=== PATIENT | female | born 1990 | race Caucasian/White ===

== ENCOUNTER 2021-01-16 10:42 | Emergency (ER) | payer BC ==
[2021-01-16 10:52] VITALS: RESP 18
--- NOTE | 2021-01-16 11:57 | ED ---
URI HPI - General Chief Complaint: Upper Respiratory Infection Stated Complaint: COVID+, SOB Time Seen by Provider: 01/16/21 10:53 Source: patient Mode of arrival: ambulatory Limitations: no limitations - History of Present Illness Initial Comments: 30yo female presenting for cc of covid positive with shortness of breath--patient states that since 01/09 she has had cough, body ahces, fevers. She tested positive for covid on Wednesday. Patient states that she continues to feel short of breath and have persistent cough. Patient denies leg swelling calf pain hemoptysis she denies vomiting diarrhea . Patient denies abdominal pain, chest pain. patient on arrival appears well nontoxic in no acute distress. Pt BMI 53 - Related Data Home Medications Medication Instructions Recorded Confirmed No Known Home Medications 01/16/21 01/16/21 Allergies Allergy/AdvReac Type Severity Reaction Status Date / Time No Known Allergies Allergy Verified 01/16/21 12:00 Review of Systems ROS Statement: Those systems with pertinent positive or pertinent negative responses have been documented in the HPI. ROS Other: All systems not noted in ROS Statement are negative. Past Medical History Past Medical History: Asthma History of Any Multi-Drug Resistant Organisms: None Reported Past Surgical History: Tonsillectomy Past Psychological History: No Psychological Hx Reported Smoking Status: Never smoker Past Alcohol Use History: Occasional Past Drug Use History: None Reported General Exam - General Exam Comments Initial Comments: General: The patient is awake and alert, in no distress Eye: +3 mm pupils are equal, round and reactive to light, extra-ocular movements are intact. No nystagmus. There is normal conjunctiva bilaterally. No signs of icterus. Ears, nose, mouth and throat: There are moist mucous membranes and no oral lesions. Neck: The neck is supple, there is no tenderness or JVD. Cardiovascular: There is a regular rate and rhythm. No murmur, rub or gallop is appreciated. Respiratory: Lungs are clear to auscultation, respirations are non-labored, breath sounds are equal. No wheezes, stridor, rales, or rhonchi. Gastrointestinal: Soft, non-distended, non-tender abdomen without masses or organomegaly noted. There is no rebound or guarding present. Musculoskeletal: Normal ROM, no tenderness. Strength 5/5. Sensation intact. Radial and DP pulses equal bilaterally 2+. Neurological: A&O x 3. CN II-XII intact grossly, There are no obvious motor or sensory deficits. Coordination appears grossly intact. Speech is normal. Skin: Skin is warm and dry and no rashes or lesions are noted. Psychiatric: Cooperative, appropriate mood & affect, normal judgment. Limitations: no limitations Course Vital Signs 01/16/21 01/16/21 01/16/21 10:45 12:36 14:18 Temperature 98.9 F 98.0 F Pulse Rate 111 H 77 Respiratory 18 18 18 Rate Blood Pressure 112/74 122/73 O2 Sat by Pulse 100 99 Oximetry Medical Decision Making - Medical Decision Making 30yo Covid +. WIth dyspnea. APpears in no distress. she is not hypoxic. Pt is obese with BMI 53 making her high risk. Discussed monoclonal antibodies patient would like to proceed with this treatment after reviewing risk vs benefit and patient reading through the information packet. Patient CXR revealed bronchitis vs pneumonitis. Patient advised on return parameters and was discharged after being monitored for adverse reaction to BAM. Patient agreeable to discharge/return parameters, Disposition Clinical Impression: COVID-19, Dyspnea, Bronchitis Disposition: HOME SELF-CARE Condition: Good Instructions (If sedation given, give patient instructions): Coronavirus Disease 2019 (COVID-19), Upper Respiratory Infection (ED) Additional Instructions: Please use medication as discussed. Please follow-up with family doctor in the next 2 days, watch oxygen levels at home and return for worsening symptoms/shortness of breath. Please return to emergency room if the symptoms increase or worsen or for any other concerns. Is patient prescribed a controlled substance at d/c from ED?: No Referrals: Kristi Abdullahi MD [Primary Care Provider] - 1-2 days Time of Disposition: 13:35
[2021-01-16] MEDS ORDERED: BAMLANIVIMAB 700 MG in SODIUM CHLORIDE 0.9% 50 ML IVPB ONE (12:30)
--- NOTE | 2021-01-16 13:15 | XR ---
EXAMINATION TYPE: XR chest 1V portable DATE OF EXAM: 01/16/2021 COMPARISON: NONE HISTORY: Shortness of breath TECHNIQUE: Single frontal view of the chest is obtained. FINDINGS: There is no focal air space opacity, pleural effusion, or pneumothorax seen. The cardiac silhouette size is within normal limits. The osseous structures are intact. Coarsened interstitium. IMPRESSION: Correlate for mild bronchitis or interstitial pneumonitis.
[2021-01-16 14:19] VITALS: BP 122/73; PULSE 77; TEMP 98
== END 2021-01-16 14:19 | disposition home or self-care (01) ==
LOC: EC 10:42
DX: U07.1 COVID-19 (principal); J45.909 Unspecified asthma, uncomplicated
CPT/HCPCS: 71045; 99284; 96365; Q0239; 99285

== ENCOUNTER 2021-10-12 16:04 | Emergency (ER) | payer BC ==
[2021-10-12 16:40] VITALS: RESP 16; TEMP 98.5
[2021-10-12] MEDS ORDERED: SODIUM CHLORIDE 0.9% 1,000 ML IV STA (17:23)
[2021-10-12] MEDS ORDERED: METOCLOPRAMIDE 5 MG/ML 2 ML VIAL IVP STA (17:23)
[2021-10-12] MEDS ORDERED: KETOROLAC 15 MG/ML 1 ML VIAL IVP STA (17:23)
[2021-10-12] MEDS ORDERED: diphenhydrAMINE 50 MG/ML 1 ML VIAL IVP STA (17:23)
--- NOTE | 2021-10-12 18:38 | ED ---
Headache HPI - General Chief Complaint: Headache Stated Complaint: Headache Time Seen by Provider: 10/12/21 16:59 Mode of arrival: ambulatory Limitations: no limitations - History of Present Illness Initial Comments: 31 year-old female patient presents for evaluation of persistent headache. States it started about 14 days ago. States it was improving with over the counter migraine relief medication but never completely went away. States that now the medication is not working at all. States it is mostly posterior at the base of her skull. She reports light sensitivity and slight sound sensitivity. Denies vomiting. States she feels like her vision is diminished in her right eye. Denies any head injury. Denies fever or chills. Denies any recent illness. States she had migraines in middle school but nothing other than normal headaches intermittently since. Reports possibility of . Did have negative home test this morning. - Related Data Home Medications Medication Instructions Recorded Confirmed Acetaminophen [Tylenol] 1,000 mg PO Q4-6H PRN 10/12/21 10/12/21 Albuterol Nebulized [Ventolin 2.5 mg INHALATION RT-Q6H PRN 10/12/21 10/12/21 Nebulized] Beclomethasone Dipropionate [Qvar 1 puff INHALATION RT-BID PRN 10/12/21 10/12/21 40 mcg Redihaler] Allergies Allergy/AdvReac Type Severity Reaction Status Date / Time No Known Allergies Allergy Verified 10/12/21 17:43 Review of Systems ROS Statement: Those systems with pertinent positive or pertinent negative responses have been documented in the HPI. ROS Other: All systems not noted in ROS Statement are negative. Past Medical History Past Medical History: Asthma History of Any Multi-Drug Resistant Organisms: None Reported Past Surgical History: Tonsillectomy Past Psychological History: No Psychological Hx Reported Smoking Status: Never smoker Past Alcohol Use History: Occasional Past Drug Use History: None Reported General Exam Limitations: no limitations General appearance: alert, in no apparent distress, other (This is a well- developed, well-nourished adult female patient in no acute distress.) Eye exam: Present: normal appearance, PERRL, EOMI. Absent: scleral icterus, conjunctival injection, nystagmus, periorbital swelling ENT exam: Present: normal exam, normal oropharynx, mucous membranes moist Respiratory exam: Present: normal lung sounds bilaterally. Absent: respiratory distress, wheezes, rales, rhonchi, stridor Cardiovascular Exam: Present: regular rate, normal rhythm, normal heart sounds. Absent: systolic murmur, diastolic murmur, rubs, gallop, clicks Neurological exam: Present: alert, oriented X3, CN II-XII intact Expanded Speech: Present: fluid speech Cranial nerves: EOM's Intact: Normal, Nystagmus: Normal Motor strength exam: RUE: 5, LUE: 5, RLE: 5, LLE: 5 Psychiatric exam: Present: normal affect, normal mood Skin exam: Present: warm, dry, intact, normal color. Absent: rash Course Vital Signs 10/12/21 10/12/21 16:35 20:10 Temperature 98.5 F Pulse Rate 90 73 Respiratory 16 16 Rate Blood Pressure 128/74 99/52 O2 Sat by Pulse 100 99 Oximetry Medical Decision Making - Medical Decision Making 31-year-old female patient presents to the emergency department today for evalu ation of headache that has been going on for the last 14 days. Physical examination is unremarkable. She is neurologically intact with no focal deficits. Vital signs are unremarkable. She was given IV fluids and pain medication. Upon reevaluation she states her pet headache is much improved. She'll be given a dose of Decadron. I did offer to perform CT of the brain for further evaluation due to longevity of the headache. She declined at this time and will follow up with her primary care physician. She is instructed to follow- up with her primary care physician for recheck 1-2 days. Return parameters were discussed in detail. She verbalizes understanding and agrees with this plan. My attending is Dr. Hoff. - Lab Data Lab Results 10/12/21 Range/Units 17:49 Urine HCG, Qual Not Detected (Not Detectd) Disposition Clinical Impression: Headache Disposition: HOME SELF-CARE Condition: Good Instructions (If sedation given, give patient instructions): Acute Headache (ED) Additional Instructions: Follow up with her primary care physician for recheck in 1-2 days. Return to the emergency department for any new, worsening, or concerning symptoms. Is patient prescribed a controlled substance at d/c from ED?: No Referrals: Kristi Abdullahi MD [Primary Care Provider] - 1-2 days Time of Disposition: 19:26
[2021-10-12] MEDS ORDERED: DEXAMETHASONE SOD PHOSPHATE 10 MG/ML 1 ML VIAL IVP STA (19:25)
[2021-10-12 20:11] VITALS: BP 99/52; PULSE 73
== END 2021-10-12 20:00 | disposition home or self-care (01) ==
LOC: EC 16:04
DX: R51.9 Headache, unspecified (principal); J45.909 Unspecified asthma, uncomplicated
CPT/HCPCS: 99284; 96374; 96375 ×3; 96361; 81025; J1200; J1100; J2765; J1885

== ENCOUNTER 2021-10-16 20:39 | Emergency (ER) | payer BC ==
[2021-10-16 20:53] VITALS: BP 159/87; TEMP 98.7
[2021-10-16] MEDS ORDERED: ONDANSETRON 4 MG/2 ML VIAL IVP STA (21:06)
[2021-10-16] MEDS ORDERED: diphenhydrAMINE 50 MG/ML 1 ML VIAL IVP STA (21:06)
[2021-10-16] MEDS ORDERED: SODIUM CHLORIDE 0.9% 1,000 ML IV STA (21:06)
[2021-10-16] MEDS ORDERED: KETOROLAC 15 MG/ML 1 ML VIAL IVP STA (21:06)
--- NOTE | 2021-10-16 23:04 | CT ---
EXAMINATION TYPE: CT brain wo con DATE OF EXAM: 10/16/2021 COMPARISON: None HISTORY: Headache CT DLP: 1071.4 mGycm Automated exposure control for dose reduction was used. Ventricles have normal size. There is no mass effect nor midline shift. There is no sign of intracran ial hemorrhage. The calvarium is intact. There is no sign of cerebral edema. Skull base is intact. Th ere is normal aeration of the mastoid sinuses. IMPRESSION: Negative unenhanced head CT scan. Minimal mucosal thickening in the posterior maxillary sinuses noted .
--- NOTE | 2021-10-16 23:25 | ED ---
Headache HPI - General Chief Complaint: Headache Stated Complaint: Headache Time Seen by Provider: 10/16/21 21:06 Source: RN notes reviewed Mode of arrival: ambulatory Limitations: no limitations - History of Present Illness Initial Comments: Patient is a 31-year-old female that presents to the emergency department complaining of a migraine type headache. She notes that this is new onset for her approximately 2 days ago. She notes she came to the emergency Department so days ago with the same complaint and was sent home with medications. She notes that she does have a family history of migraines. She notes that she does have photophobia. She denied any other symptoms or complaints. She was otherwise well-appearing. She denied chest pain shortness of breath nausea vomiting diarrhea constipation fever fatigue chills. - Related Data Home Medications Medication Instructions Recorded Confirmed Acetaminophen [Tylenol] 1,000 mg PO Q4-6H PRN 10/12/21 10/16/21 Albuterol Nebulized [Ventolin 2.5 mg INHALATION RT-Q6H PRN 10/12/21 10/16/21 Nebulized] Beclomethasone Dipropionate [Qvar 1 puff INHALATION RT-BID PRN 10/12/21 10/16/21 40 mcg Redihaler] Allergies Allergy/AdvReac Type Severity Reaction Status Date / Time No Known Allergies Allergy Verified 10/16/21 21:47 Review of Systems ROS Statement: Those systems with pertinent positive or pertinent negative responses have been documented in the HPI. ROS Other: All systems not noted in ROS Statement are negative. Past Medical History Past Medical History: Asthma History of Any Multi-Drug Resistant Organisms: None Reported Past Surgical History: Tonsillectomy Past Psychological History: No Psychological Hx Reported Smoking Status: Never smoker Past Alcohol Use History: Occasional Past Drug Use History: None Reported General Exam Limitations: no limitations General appearance: alert, in no apparent distress, obese Head exam: Present: atraumatic, normocephalic, normal inspection Eye exam: Present: normal appearance, PERRL, EOMI. Absent: scleral icterus, conjunctival injection, periorbital swelling ENT exam: Present: normal exam, mucous membranes moist Neck exam: Present: normal inspection. Absent: tenderness, meningismus, lymphadenopathy Respiratory exam: Present: normal lung sounds bilaterally. Absent: respiratory distress, wheezes, rales, rhonchi, stridor Cardiovascular Exam: Present: regular rate, normal rhythm, normal heart sounds. Absent: systolic murmur, diastolic murmur, rubs, gallop, clicks Extremities exam: Present: normal inspection, full ROM, normal capillary refill. Absent: tenderness, pedal edema, joint swelling, calf tenderness Neurological exam: Present: alert, oriented X3 Psychiatric exam: Present: normal affect, normal mood Course Vital Signs 10/16/21 20:51 Temperature 98.7 F Pulse Rate 98 Respiratory 18 Rate Blood Pressure 159/87 O2 Sat by Pulse 99 Oximetry Medical Decision Making - Medical Decision Making 31-year-old female with a migraine type headache for the past several days. 50 mg of Benadryl, 4 mg Zofran, 15 g of Toradol, 1 L normal saline, CT of the brain ordered. CT of the brain negative for any acute process. case discussed with Dr. Niño, patient can discharge home. - Radiology Data Radiology results: report reviewed, image reviewed CT of the brain: Negative unenhanced head computed tomography scan. Minimal mucosal thickening in the posterior maxillary sinus noted. Disposition Clinical Impression: Migraine headache Disposition: HOME SELF-CARE Condition: Stable Instructions (If sedation given, give patient instructions): Acute Headache (ED) Additional Instructions: Please return to the Emergency Department if symptoms worsen or any other concerns. Follow-up with primary care 1-2 days. Take medication as prescribed. Follow-up with neurologist as planned. Is patient prescribed a controlled substance at d/c from ED?: No Referrals: Kristi Abdullahi MD [Primary Care Provider] - 1-2 days Time of Disposition: 23:25
[2021-10-16 23:32] VITALS: PULSE 87; RESP 16
== END 2021-10-16 23:32 | disposition home or self-care (01) ==
LOC: EC 20:39
DX: G43.909 Migraine, unspecified, not intractable, without status migrainosus (principal); J45.909 Unspecified asthma, uncomplicated; E66.9 Obesity, unspecified; Z79.51 Long term (current) use of inhaled steroids; Z68.43 Body mass index [BMI] 50.0-59.9, adult
CPT/HCPCS: 70450; 99283; 96374; 96375 ×2; 96361; J1200; J2405; J1885

== ENCOUNTER → 2021-11-06 | Outpatient (CLI) | payer BC ==
--- NOTE | 2021-11-06 16:01 | CT ---
EXAMINATION TYPE: CT soft tissue neck w con DATE OF EXAM: 11/06/2021 COMPARISON: None HISTORY: 31-year-old female R22.1, Localized swelling, mass/lump RT side EAM/neck. Marked by SHIRLEY. TECHNIQUE: Contiguous axial scanning of the soft tissues of the neck performed with IV Contrast, layla ent injected with 100 mL of Isovue 300. Coronal/sagittal reconstructions performed. CT DLP: 1091.10 mGycm Automated exposure control for dose reduction was used. FINDINGS: There are direct takeoff of the left vertebral artery directly from the aortic arch. The thyroid and submandibular glands are satisfactory. The left parotid gland is satisfactory. There is a lobulated mass of the superficial lobe right parotid gland measuring 3.0 x 2.5 x 2.1 cm (s agittal image 23 and axial image 77). Overlying palpable marker. Prominent lymph node overlying the left side of the jaw just superficial to the lower left masseter m uscle measuring up to 6 mm short axis. Nonspecific, probably reactive. No cervical lymphadenopathy by CT size criteria. Visualized intracranial structures show no gross abnormal body. Moderate lobulated mucosal thickening floor of the axillary sinuses and moderate mucosal thickening ethmoid air cells. Visualized orbits a nd globes are intact. Mastoid air cells clear. Soft tissue fullness in the region of the nasopharynx may relate to some layering secretions, axial i mage 75. There is also prominent soft tissue fullness in the upper oropharynx. There is complete effa cement of the airway here. This may reflect prominent bilateral palatine tonsillar hypertrophy and ca n be correlated with direct visualization. Breathing motion artifact. Some asymmetric hypertrophy of the left lingual tonsils partially effacing the left vallecular space. Epiglottis and prevertebral soft tissues as well as the tracheal column and visualized upper lungs ap pear clear. Reversal of the normal cervical lordosis. IMPRESSION: 1. PALPABLE MARKER ON THE RIGHT WITH UNDERLYING LOBULATED 3.0 X 2.5 X 2.1 CM SOLID MASS OF THE SUPERF ICIAL LOBE RIGHT PAROTID GLAND. THIS COULD REPRESENT AN ABNORMALLY ENLARGED LYMPH NODE, [place], O R SALIVARY GLAND TUMOR. RECOMMEND ULTRASOUND AND CONSIDERATION TO TISSUE SAMPLING. 2. CROWDING IN THE NASOPHARYNX AND ESPECIALLY THE UPPER OROPHARYNX. FINDINGS PROBABLY DUE TO PROMINEN T LYMPHOID TISSUE ESPECIALLY AT THE BILATERAL PALATINE TONSILS. RECOMMEND DIRECT VISUALIZATION TO EXC LUDE ANY MUCOSAL LESION. 3. MODERATE CHRONIC ETHMOID SINUS DISEASE AND ALSO ALONG THE FLOORS OF THE MAXILLARY SINUSES.
== END | disposition home or self-care (01) ==
LOC: RADCTMAIN 14:27
PROVIDERS: ATTEND Otolaryngology
DX: K11.8 Other diseases of salivary glands (principal); J32.2 Chronic ethmoidal sinusitis; J32.0 Chronic maxillary sinusitis
CPT/HCPCS: 70491; Q9967

== ENCOUNTER → 2021-11-21 | Outpatient (CLI) | payer BC ==
--- NOTE | 2021-11-27 10:37 | HM ---
HOLTER MONITOR REPORT [id number] HOLTER: INDICATION: Palpitations. This 24-hour Holter shows sinus rhythm with episodes of sinus tachycardia. The maximum heart rate was 170 beats per minute. Occasional PVCs are noted. Rare PACs are noted. There are no episodes of sustained ventricular or supraventricular tachyarrhythmias. There are no episodes of more than 2-second pauses. Patient's symptoms were not associated with significant Holter abnormalities. CONCLUSIONS: This 24-hour Holter revealed sinus rhythm with PVCs. MMODL / IJN: [id number] /
== END | disposition home or self-care (01) ==
LOC: RADECHMAIN 08:14
PROVIDERS: ATTEND Family Medicine
DX: I49.3 Ventricular premature depolarization (principal)
CPT/HCPCS: 93225; 93226

== ENCOUNTER 2021-12-12 08:41 | Day surgery (SDC) | payer BC ==
[2021-12-11 08:40] VITALS: BMI 52.4
--- NOTE | 2021-12-11 18:39 | HP ---
HISTORY AND PHYSICAL CHIEF COMPLAINT: Nasopharyngeal mass. HISTORY OF PRESENT ILLNESS: This patient is a very pleasant 31-year-old female who is well known to my office. The patient recently presented complaining of a lump on the right side of her face, just anterior to her right ear. She stated that the lump had been there for approximately 2 years and that it did not cause any pain, discomfort or ear pain. The patient is a nonsmoker. Palpation of the area revealed that the patient had a 3 x 2 cm firm, well- circumscribed, nontender, nonfluctuant immobile mass located in the region of the region of the tail of the right parotid gland. A CT scan was subsequently done of the neck and this confirmed the presence of a right parotid mass measuring approximately 3 x 2.5 x 2.1 cm. In addition to this, there was a question of a possible mass in the nasopharynx, and direct visualization was recommended. The patient was therefore advised that it would be best that she be taken to surgery and at that time undergo a suspension microlaryngoscopy and examination of the nasopharynx under general anesthesia. PAST MEDICAL HISTORY: Past medical history reveals patient has NO KNOWN ALLERGIES TO MEDICATIONS. MEDICATIONS: Her current medications include Motrin and Tylenol. There is no history of asthma, diabetes mellitus or hypertension. Previous surgeries reveal that the patient is 1 para 1 0 0 miscarriage. REVIEW OF SYSTEMS: Completely noncontributory. PHYSICAL EXAMINATION: This patient is a very pleasant 31-year-old female who was alert and cooperative. HEENT examination: Patient is normocephalic. Tympanic membranes are normal. Middle ear space is free of all fluid or infection. Pupils equal, round and reactive to light and accommodation. Extraocular movements within normal limits. Intranasal examination reveals moderate septal deviation with compensatory hypertrophy of inferior turbinates. Examination of the oropharynx is unremarkable. Palpation of the neck, cranial nerves 2- 12, and the remainder of the head and neck exam is essentially within normal limits. Chest/cardiovascular: Both lung nance are clear to percussion and auscultation. The patient is in regular sinus rhythm. S1 and S2 are present without evidence of any murmurs, S3s or S4s. Peripheral pulses are bilaterally symmetrical and within normal limits. ABDOMEN: There is no evidence of any masses, megaly or tenderness. The abdomen is soft. Skin is unremarkable. Musculoskeletal and neurological within normal limits. Pelvic/rectal exam is deferred at this time because the patient has this done on a regular basis at her family physician's office. IMPRESSION: Nasopharyngeal mass. PLAN: The patient is scheduled to undergo a suspension microlaryngoscopy and examination of nasopharynx under general anesthesia. Note: This patient has also had a previous tonsillectomy in 2018. ATTENTION RNS IN THE PRE SURGICAL AREA: I have not ordered any pre-surgical prophylactic antibiotics for this patient. If the pharmacy department sends any pre- surgical prophylactic antibiotics to the pre-surgical area for this patient, please return that medication to the pharmacy department and cancel that order. Also, please make sure that the patient's account is credited appropriately. I have ordered for this patient to receive 1000 mg of Ofirmev IV to be given once an intravenous line has been established. I have discussed the risks, benefits and alternative therapies for the above-mentioned procedure and for both sedation/analgesia as well as necessary blood product administration, if indicated, as they pertain to this patient. The patient has indicated his or her understanding and acceptance of the risks and procedures discussed. MMODL / IJN: [id number] /
[~2021-12-12 08:41] MED LIST: ACETAMINOPHEN IV (For NPO) 1,000 MG in EMPTY BAG 1 BAG IVPB PRN; DEXAMETHASONE SOD PHOSPHATE 4 MG/ML 1 ML VIAL IV ONE; HYDROmorphone 0.5 MG/0.5 ML SYRINGE IVP PRN; LACTATED RINGERS 1,000 ML IV SCH; MIDAZOLAM 2 MG/2 ML VIAL IV PRN; ONDANSETRON 4 MG/2 ML VIAL IVP ONE; Pre Op ABX Message 1 EACH MISC MISCELLANE ONE; SCOPOLAMINE 1.5MG/72HR PATCH TRANSDERM ONE
[2021-12-12] MEDS ORDERED: fentaNYL (PF) 50 MCG/ML 2 ML AMP ONE (09:52)
[2021-12-12] MEDS ORDERED: PROPOFOL 10 MG/ML 20 ML VIAL IV ONE (09:52)
[2021-12-12] MEDS ORDERED: LIDOCAINE 1% INJ 10MG/ML (20 ML MDV) ONE (09:52)
[2021-12-12] MEDS ORDERED: DEXAMETHASONE SOD PHOSPHATE 10 MG/ML 1 ML VIAL ONE (09:52)
[2021-12-12] MEDS ORDERED: SUCCINYLCHOLINE CHLORIDE VIAL 200 MG/10 ML VIAL IV ONE (09:52)
[2021-12-12] MEDS ORDERED: MIDAZOLAM 2 MG/2 ML VIAL ONE (09:52)
[2021-12-12 10:56] VITALS: TEMP 97.7
[2021-12-12 11:42] VITALS: RESP 20
[2021-12-12 12:17] VITALS: BP 95/61; PULSE 78
--- NOTE | 2021-12-15 17:52 | OP ---
OPERATIVE REPORT DATE OF SURGERY: 12/12/2021 PREOPERATIVE DIAGNOSIS: Nasopharyngeal mass. POSTOPERATIVE DIAGNOSIS: Nasopharyngeal mass. ANESTHESIA: General. OPERATIVE PROCEDURE: 1. Suspension microlaryngoscopy. 2. Examination of nasopharynx under anesthesia. OPERATING SURGEON: Dr. Bruce. COMPLICATIONS: None. ESTIMATED BLOOD LOSS: Zero. OPERATIVE PROCEDURE DESCRIPTION: The patient was placed on the operating table in supine position, and after uneventful induction and endotracheal intubation, satisfactory general anesthesia was obtained. Attention was directed initially to performing the suspension microlaryngoscopy portion of the procedure. Therefore the laryngoscope was introduced into the patient's oropharynx and the right and left piriform sinuses, valleculae, base of tongue and epiglottis were inspected and found to be free of any suspicious lesions. Next the tip of the laryngoscope was introduced into the laryngeal introitus. The Lewy apparatus was attached to the handle of the laryngoscope and the laryngoscope was suspended on the patient's chest. Next, using the Zeiss operating microscope, inspection of the larynx revealed no suspicious lesions of the vocal cords, false vocal cords, ventricles, arytenoids or any of the laryngeal structures. Next the laryngoscope was removed from the patient's oropharynx and a #3 Francine-Josiah mouth gag was introduced into the patient's pharynx and expanded and suspended on a Purvis stand. Next a red rubber catheter was placed into the patient's left naris and brought out through the oropharynx and clamped. This was done so as to be able to elevate the soft palate. Next, using the laryngeal mirror, inspection of the nasopharynx, including attention to the eustachian tube orifices and fossae of [place]mu[place], was carefully done. No suspicious lesions or masses were noted. There was no evidence of any residual lymphoid tissue in the nasopharynx. The patient had previously had a tonsillectomy and there was no evidence of any residual tonsillar tags noted. The patient was given 10 mg of Decadron intraoperatively to reduce any laryngeal swelling. At this point the procedure was terminated. The mouth gag was removed from the patient's pharynx. The patient tolerated the procedure well and was returned to the recovery room in satisfactory condition. MMODL / IJN: [id number] /
== END 2021-12-12 12:29 | disposition home or self-care (01) ==
LOC: OR 08:41
PROVIDERS: ATTEND Otolaryngology
DX: J39.2 Other diseases of pharynx (principal); J45.909 Unspecified asthma, uncomplicated; G43.909 Migraine, unspecified, not intractable, without status migrainosus; K21.9 Gastro-esophageal reflux disease without esophagitis; Z79.51 Long term (current) use of inhaled steroids; Z79.899 Other long term (current) drug therapy
CPT/HCPCS: 81025; 31526; J2250; J0330; J1100 ×2; J2405; J2001; J3010; J0131; J2704; J1170

== ENCOUNTER → 2021-12-25 | Outpatient (CLI) | payer BC ==
--- NOTE | 2021-12-25 17:09 | CONS ---
CONSULTATION DATE OF SERVICE: 12/25/2021 This 31-year-old lady has [facility] for possible obstructive sleep apnea-hypopnea syndrome. HISTORY OF PRESENT ILLNESS/SLEEP-WAKE EVALUATION: This patient was diagnosed with obstructive sleep apnea about 10 years ago in another institution. At that time it was recommended that she start treatment with CPAP, but the patient was not able to use the treatment. Currently her sleep schedule is from 10 or 11 p.m. to 7 a.m. on weekdays and on weekends from 11 p.m. or midnight until between 7 and 8:30 a.m. Sometimes the patient has problems with falling asleep, although no TV in bedroom. She sleeps in different positions with snoring and awakenings from sleep up to 4 times with one episode of nocturia. Positive history of grinding teeth. No history of hypnagogic hallucinations, sleep paralysis or cataplexy. In the morning the patient wakes up tired, has problems with concentration and irritability. Wilson Sleepiness Scale increased to 12. The patient does not take any naps, though. Over 5 years her weight has increased by about 70 pounds. PAST MEDICAL HISTORY: Positive for asthma, seasonal allergies, rhinitis, headaches, acid reflux, peptic ulcer disease, COVID-19 in March 2021. 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 PAST SURGICAL HISTORY: Exploratory throat surgery in October of 2021. MEDICATIONS: Albuterol, Qvar. SOCIAL HISTORY: Negative for smoking. Alcohol consumption occasional. FAMILY HISTORY: Hypertension, arthritis, cancer, diabetes, thyroid problems. REVIEW OF SYSTEMS: Snoring, multiple awakenings from sleep. No fevers. No double vision. No recent chest pain. No shortness of breath. No abdominal pain. No bleeding episodes. No blood in the urine. No seizure episodes. PHYSICAL EXAMINATION: GENERAL: Pleasant lady without distress. VITAL SIGNS: BP 119/79, HR around 100, RR 16, height 5 feet 7-1/4 inches, weight 348.6 pounds, body mass index 54.1, temperature 98.1, oxygen saturation at room air 97%. HEENT: PERRLA, EOMI, evaluation of oropharynx showed tongue protrudes midline. Wide pillars. Position of soft palate in the range of Mallampati II. NECK: Supple, no JVD. Thyroid is not palpable. Neck measures 17 inches in circumference. Palpable tumor on the right side of the face, hot during palpation about 6 to 7 cm long by 2 to 3 cm. LUNGS: Clear to percussion and to auscultation. Good air exchange. No wheezing or rhonchi. HEART: S1, S2 regular. No murmurs, gallops, or rubs. ABDOMEN: Soft and nontender. Bowel sounds are present. No organomegaly appreciated. EXTREMITIES: No clubbing or cyanosis. BUSINESS INTERN: Awake, alert, and oriented X3. Cranial nerves 2 to 7 intact. There is no fasciculation or atrophy. noted. No focal deficits observed. IMPRESSION: 1. Snoring, multiple awakenings from sleep, small oropharyngeal airspace, wide neck, 17 inches in circumference; possible obstructive sleep apnea-hypopnea syndrome. 2. Obesity, morbid range; body mass index 54.1. 3. Asthma. 4. Tumor, right side of the face. Hot during palpation, about 7 x 3 cm. 5. Seasonal allergies. 6. Rhinitis. 7. Headaches. 8. Acid reflux. 9. History of peptic ulcer disease. 10.Status post COVID-19 in the middle of last year. PLAN: 1. Polysomnography for evaluation of patient's breathing during sleep and also to exclude obesity hypoventilation. 2. CPAP/BiPAP titration if sleep study confirms obstructive sleep apnea-hypopnea syndrome. 3. Preferable position during sleep on the side. 4. No driving if patient feels any sleepiness. 5. I will see patient for follow up visit to explain results of testing and following plan. Thank you very much for referring this patient for consultation. Sincerely, Augustine To MD, PhD, FAASM Diplomat of [employer] Sleep Medicine [employer] of [employer] Microbiology Technologist of [facility] [place] MMODL / IJN: [id number] /
== END ==
LOC: SLEEP 13:26
PROVIDERS: ATTEND Internal Medicine
DX: R06.83 Snoring (principal); E66.01 Morbid (severe) obesity due to excess calories; J45.909 Unspecified asthma, uncomplicated; D49.9 Neoplasm of unspecified behavior of unspecified site; R51.9 Headache, unspecified; K21.9 Gastro-esophageal reflux disease without esophagitis; Z87.11 Personal history of peptic ulcer disease; Z86.16 Personal history of COVID-19; Z68.43 Body mass index [BMI] 50.0-59.9, adult; Z79.899 Other long term (current) drug therapy
CPT/HCPCS: 99211

== ENCOUNTER → 2024-11-15 | Outpatient (CLI) | payer BC, OTHER ==
--- NOTE | 2024-11-15 10:49 | US ---
EXAMINATION TYPE: US abdomen limited DATE OF EXAM: 11/15/2024 COMPARISON: NONE CLINICAL INDICATION: Female, 34 years old with history of R19.09 OTHER INTRA-ABDOMINAL AND PELVIC SW ELLING,; Palpable left abdomen at lower rib. Patient states it is starting to get uncomfortable. TECHNIQUE: Sonographic images taken of area of concern. FINDINGS: Multiple images taken of patients palpable area of of concern. Possible focal area seen = 6.8 x 1.5 cm, nonvascular. Contralateral image taken. IMPRESSION: Hypoechoic lesion thought to be in the subcutaneous tissues possibly representing a lipoma. This can be confirmed with CT or MRI with palpable marker placement. [facility], , 11/15/2024 10:46 AM
== END | disposition home or self-care (01) ==
LOC: RADUSWWP 09:29
PROVIDERS: ATTEND Family Medicine
DX: R19.09 Other intra-abdominal and pelvic swelling, mass and lump (principal)
CPT/HCPCS: 76705